=== PATIENT | female | born 1995 | race American Indian/Alaskan Native ===

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

== ENCOUNTER 2017-05-11 14:20 | Emergency (ER) | payer MEDICAID ==
[2017-05-11 15:09] VITALS: BP 130/56
[2017-05-11 15:51] LABS: Bilirubin,Urine NEG (Negative); Blood,Urine NEG (Negative); Color,Urine Yellow (Yellow); Mucus,Urine 3+ /HPF; Protein,Urine <15 mg/dL mg/dL (Negative); Urobilinogen,Urine < 2.0 mg/dL (<2.0)
[2017-05-11 15:52] LABS: HCG Qualitative,Urine Negative (Negative)
[2017-05-11] MEDS ORDERED: ZOFRAN ONE (18:23)
== END 2017-05-11 18:10 | disposition left against medical advice (07) ==
LOC: ED 14:20
DX: R11.2 Nausea with vomiting, unspecified (principal); Z53.21 Procedure and treatment not carried out due to patient leaving prior to being seen by health care provider
CPT/HCPCS: 81001; 81025; J2405

== ENCOUNTER 2018-12-13 15:25 | Emergency (ER) | payer SELFPAY ==
[2018-12-13 15:53] VITALS: BP 122/62
--- NOTE | 2018-12-13 15:54 | Event Note ---
ED Screening Note Date of service: 12/13/18 Time: 15:52 ED Screening Note: Pt complains of pelvic pain/cramping, dysuria, and positive home test x 2 weeks. +urinary frequency and polydipsia This initial assessment/diagnostic orders/clinical plan/treatment(s) is/are subject to change based on patients health status, clinical progression and re- assessment by fellow clinical providers in the ED. Further treatment and workup at subsequent clinical providers discretion. Patient/guardian urged not to elope from the ED as their condition may be serious if not clinically assessed and managed. Initial orders include: CBC BMP UA preg
[2018-12-13 17:30] LABS: Basophils % (Auto) 0.4 % (0.0-1.8); Eosinophils # (Auto) 0.1 K/mm3 (0.0-0.4); Eosinophils % (Auto) 1.5 % (0.0-4.3); Hematocrit 40.2 % (30.3-42.9); Hemoglobin 13.3 gm/dl (10.1-14.3); Lymphocytes % (Auto) 27.1 % (13.4-35.0); Mean Corpuscular HGB Conc 33 % (30-34); Mean Corpuscular Volume 88 fl (79-97); Monocytes # (Auto) 0.7 K/mm3 (0.0-0.8); Monocytes % (Auto) 9.6 % (0.0-7.3); Platelet Count 259 K/mm3 (140-440); Red Blood Count 4.54 M/mm3 (3.65-5.03); Red Cell Distribution Width 13.3 % (13.2-15.2)
[2018-12-13 18:00] LABS: BUN/Creatinine Ratio 16; Blood Urea Nitrogen 11 mg/dL (7-17); Calcium 9.2 mg/dL (8.4-10.2); Hemolysis Index 13
--- NOTE | 2018-12-13 19:29 | Emergency Department Report ---
ED Abdominal Pain HPI - General Chief Complaint: Abdominal Pain Stated Complaint: ABD CRAMPS/NAUSEA Time Seen by Provider: 12/13/18 19:19 Source: patient Mode of arrival: Ambulatory Limitations: No Limitations - History of Present Illness Initial Comments: Patient is a 23-year-old female that presents emergency room for late menstrual period, nausea and abdominal pain. Patient states she's been having having abdominal cramps for the past 4 days. Patient states they're generalized. Patient states the pain is an 8 out of 10. Patient states the pain is better with rest and worse with movement. Patient states took a home doesn't was negative. Patient states she's having breast tenderness. Patient states that her period is 2 days late. Last menstrual period was 11/15/2018. Patient denies vaginal bleeding. Patient denies vaginal discharge. Patient denies dysuria. Patient denies fever or chills. -: Sudden Location: diffuse Radiation: none Migration to: no migration Severity: severe Severity scale (0 -10): 8 Quality: cramping Consistency: constant Improves With: rest Worsens With: movement Associated Symptoms: nausea. denies: vomiting, diarrhea, fever, chills, constipation, dysuria, hematemesis, hematochezia, melena, hematuria, syncope - Related Data Previous Rx's Medication Instructions Recorded Last Taken Type Cetirizine HCl [ZyrTEC] 10 mg PO QDAY #30 capsule 05/09/16 Unknown Rx Fluticasone [Flonase] 1 spray NS QDAY #1 bottle 05/09/16 Unknown Rx Ibuprofen [Motrin 800 MG tab] 800 mg PO Q8HR #30 tablet 05/09/16 Unknown Rx Ondansetron [Zofran Odt] 4 mg PO Q6HR PRN #15 tab.rapdis 12/13/18 Unknown Rx Allergies Allergy/AdvReac Type Severity Reaction Status Date / Time No Known Allergies Allergy Unverified 05/09/16 14:34 ED Review of Systems ROS: Stated complaint: ABD CRAMPS/NAUSEA Other details as noted in HPI Constitutional: denies: chills, fever Eyes: denies: eye pain, eye discharge, vision change ENT: denies: ear pain, throat pain Respiratory: denies: cough, shortness of breath, wheezing Cardiovascular: denies: chest pain, palpitations Endocrine: no symptoms reported Gastrointestinal: abdominal pain, nausea. denies: vomiting, diarrhea Genitourinary: denies: urgency, dysuria, discharge Musculoskeletal: denies: back pain, joint swelling, arthralgia Skin: denies: rash, lesions Neurological: denies: headache, weakness, paresthesias Psychiatric: denies: anxiety, depression Hematological/Lymphatic: denies: easy bleeding, easy bruising ED Past Medical Hx - Past Medical History Previous Medical History?: No Hx Hypertension: No Hx CVA: No Hx Heart Attack/AMI: No Hx Congestive Heart Failure: No Hx Diabetes: No Hx Deep Vein Thrombosis: No Hx Pulmonary Embolism: No Hx GERD: No Hx Liver Disease: No Hx Renal Disease: No Hx of Cancer: No Hx Sickle Cell Disease: No Hx Arthritis: No Hx Headaches / Migraines: No Hx Seizures: No Hx Kidney Stones: No Hx Psychiatric Treatment: No Hx Asthma: No Hx COPD: No Hx Tuberculosis: No Hx Dementia: No Hx HIV: No - Surgical History Past Surgical History?: No Hx Coronary Stent: No Hx Open Heart Surgery: No Hx Pacemaker: No Hx Internal Defibrillator: No Hx Cholecystectomy: No Hx Appendectomy: No Hx Breast Surgery: No - Family History Family history: no significant - Social History Smoking Status: Never Smoker Substance Use Type: None - Medications Home Medications: Home Medications Medication Instructions Recorded Confirmed Last Taken Type Cetirizine HCl [ZyrTEC] 10 mg PO QDAY #30 capsule 05/09/16 Unknown Rx Fluticasone [Flonase] 1 spray NS QDAY #1 bottle 05/09/16 Unknown Rx Ibuprofen [Motrin 800 MG tab] 800 mg PO Q8HR #30 tablet 05/09/16 Unknown Rx Ondansetron [Zofran Odt] 4 mg PO Q6HR PRN #15 tab.rapdis 12/13/18 Unknown Rx ED Physical Exam - General Limitations: No Limitations General appearance: alert, in no apparent distress - Head Head exam: Present: atraumatic, normocephalic - Eye Eye exam: Present: normal appearance - ENT ENT exam: Present: mucous membranes moist - Neck Neck exam: Present: normal inspection - Respiratory Respiratory exam: Present: normal lung sounds bilaterally. Absent: respiratory distress - Cardiovascular Cardiovascular Exam: Present: regular rate, normal rhythm. Absent: systolic murmur, diastolic murmur, rubs, gallop - GI/Abdominal GI/Abdominal exam: Present: soft, normal bowel sounds. Absent: distended, tenderness, guarding - Rectal Rectal exam: Present: deferred - Extremities Exam Extremities exam: Present: normal inspection - Back Exam Back exam: Present: normal inspection - Neurological Exam Neurological exam: Present: alert, oriented X3 - Psychiatric Psychiatric exam: Present: normal affect, normal mood - Skin Skin exam: Present: warm, dry, intact, normal color. Absent: rash ED Course Vital Signs 12/13/18 15:51 Temperature 98.1 F Pulse Rate 62 Respiratory 16 Rate Blood Pressure 122/62 O2 Sat by Pulse 99 Oximetry - Reevaluation(s) Reevaluation #1: I discussed all results with patient. I discussed plan of care with patient. Patient agrees with plan of care. Patient is stable for discharge. Patient will be discharged home. Patient given discharge instructions. Patient voiced understanding of discharge instructions. 12/13/18 19:59 ED Medical Decision Making - Lab Data Result diagrams: 12/13/18 17:06 12/13/18 17:06 - Medical Decision Making Patient is a 23-year-old female that presents emergency room for abdominal pain, cramps, nausea. Patient also complained of her menstrual cycle being late. Patient's labs unremarkable. Patient's clinical findings consistent with gastroenteritis and irregular menses. Patient given discharge instructions. 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 Patient stable for discharge. Patient discharged home with instructions. - Differential Diagnosis . Irregular menses. Nausea. Gastroneuritis. Abdominal pain. Critical care attestation.: If time is entered above; I have spent that time in minutes in the direct care of this critically ill patient, excluding procedure time. ED Disposition Clinical Impression: Irregular menses, Nausea, Gastroenteritis Abdominal pain Qualifiers: Abdominal location: generalized Qualified Code(s): R10.84 - Generalized abdominal pain Disposition: - TO HOME OR SELFCARE Is pt being admited?: No Does the pt Need Aspirin: No Condition: Stable Instructions: Abdominal Pain (ED), Gastroenteritis (ED), Acute Nausea and Vomiting (ED) Additional Instructions: Patient to follow-up with primary care in 2-3 days. Patient to follow-up with og/nutrition specialist in 2-3 days. Patient to return to ER if condition worsens. Patient to rest. Patient to increase water. Patient to take meds as directed. Patient's take Tylenol or ibuprofen when necessary for pain. Prescriptions: Ondansetron [Zofran Odt] 4 mg PO Q6HR PRN #15 tab.rapdis PRN Reason: Nausea Referrals: JEANNE ELAM MD [Staff Physician] - 2-3 Days Time of Disposition: 20:02
[2018-12-13 19:47] LABS: Bilirubin,Urine NEG (Negative); Blood,Urine NEG (Negative); Color,Urine Yellow (Yellow); Mucus,Urine FEW /HPF; Protein,Urine <15 mg/dL mg/dL (Negative); Urobilinogen,Urine < 2.0 mg/dL (<2.0); WBC,Urine < 1.0 /HPF (0.0-6.0)
[2018-12-13 19:57] LABS: HCG Qualitative,Urine Negative (Negative)
== END 2018-12-13 20:05 | disposition home or self-care (01) ==
LOC: ED 15:25
DX: K52.9 Noninfective gastroenteritis and colitis, unspecified (principal); N92.6 Irregular menstruation, unspecified
CPT/HCPCS: 36415; 80048; 81001; 81025; 85025

== ENCOUNTER 2019-06-23 03:50 | Inpatient (IN) | payer MEDICAID ==
[2019-06-23] MEDS ORDERED: ACETAMINOPHEN 325 MG TAB PO ONE (04:18)
--- NOTE | 2019-06-23 04:18 | Emergency Department Report ---
ED General Adult HPI - General Chief complaint: Vaginal Bleeding Stated complaint: VAGINAL BLEEDING Time Seen by Provider: 06/23/19 04:11 Source: patient, EMS ( EMS documentation not available at time of chart dictation ), RN notes reviewed Mode of arrival: Stretcher Limitations: No Limitations - History of Present Illness Initial comments: Chaperoned by nurse Jessica Gonzalez Patient denies fever, cough, coronavirus exposure Patient is a 23-year-old female, not known to this provider previously, with no chronic medical conditions, G1, P0, approximately 5 months gestation, typically follows with [facility] PIPE ORGAN TECHNICIAN, who presents to the ER with a complaint of vaginal bleeding and fluid expulsion from her vagina. Patient states that she was in her usual state of health, and was masturbating with her finger last night, shortly thereafter, started to have fluid expulsion, not sure what color it was, with some vaginal bleeding. Patient also endorses that there was some cramping. The patient makes no complaint of headache, neck pain, chest pain, shortness of breath, denies irritative and obstructive urinary symptoms. She is nauseous but has not vomited that she can recall. She indicates she is not having pain at this time. Her symptoms have basically resolved, and do not have exacerbating or relieving factors that she is aware of, with the exception of vaginal bleeding which has been going on for a few hours. -: Sudden Location: abdomen Severity scale (0 -10): 0 Quality: other (Cramp) Consistency: now resolved Improves with: none Worsens with: none - Related Data Previous Rx's Medication Instructions Recorded Last Taken Type Cetirizine HCl [ZyrTEC] 10 mg PO QDAY #30 capsule 05/09/16 Unknown Rx Fluticasone [Flonase] 1 spray NS QDAY #1 bottle 05/09/16 Unknown Rx Ibuprofen [Motrin 800 MG tab] 800 mg PO Q8HR #30 tablet 05/09/16 Unknown Rx Ondansetron [Zofran Odt] 4 mg PO Q6HR PRN #15 tab.rapdis 12/13/18 Unknown Rx Allergies Allergy/AdvReac Type Severity Reaction Status Date / Time No Known Allergies Allergy Unverified 05/09/16 14:34 ED Review of Systems ROS: Stated complaint: VAGINAL BLEEDING Other details as noted in HPI Constitutional: denies: fever Eyes: denies: eye discharge ENT: denies: congestion Respiratory: denies: wheezing Cardiovascular: denies: chest pain Gastrointestinal: abdominal pain, nausea Genitourinary: as per HPI Musculoskeletal: as per HPI. denies: back pain Skin: as per HPI Neurological: as per HPI Psychiatric: as per HPI, anxiety Hematological/Lymphatic: denies: easy bleeding ED Past Medical Hx - Past Medical History Previous Medical History?: No Hx Hypertension: No Hx CVA: No Hx Heart Attack/AMI: No Hx Congestive Heart Failure: No Hx Diabetes: No Hx Deep Vein Thrombosis: No Hx Pulmonary Embolism: No Hx GERD: No Hx Liver Disease: No Hx Renal Disease: No Hx Sickle Cell Disease: No Hx Arthritis: No Hx Headaches / Migraines: No Hx Seizures: No Hx Kidney Stones: No Hx Psychiatric Treatment: No Hx Asthma: No Hx COPD: No Hx Tuberculosis: No Hx Dementia: No Hx HIV: No - Surgical History Past Surgical History?: No Hx Coronary Stent: No Hx Open Heart Surgery: No Hx Pacemaker: No Hx Internal Defibrillator: No Hx Cholecystectomy: No Hx Appendectomy: No Hx Breast Surgery: No - Social History Smoking Status: Current Some Day Smoker - Medications Home Medications: Home Medications Medication Instructions Recorded Confirmed Last Taken Type Cetirizine HCl [ZyrTEC] 10 mg PO QDAY #30 capsule 05/09/16 Unknown Rx Fluticasone [Flonase] 1 spray NS QDAY #1 bottle 05/09/16 Unknown Rx Ibuprofen [Motrin 800 MG tab] 800 mg PO Q8HR #30 tablet 05/09/16 Unknown Rx Ondansetron [Zofran Odt] 4 mg PO Q6HR PRN #15 tab.rapdis 12/13/18 Unknown Rx ED Physical Exam - General Limitations: No Limitations General appearance: alert, anxious, obese - Head Head exam: Present: atraumatic, normocephalic - Eye Eye exam: Present: normal appearance, EOMI, nystagmus - ENT ENT exam: Present: normal exam, normal orophraynx, mucous membranes moist, normal external ear exam - Neck Neck exam: Present: normal inspection, full ROM. Absent: tenderness, meningis mus - Respiratory Respiratory exam: Present: normal lung sounds bilaterally. Absent: respiratory distress - Cardiovascular Cardiovascular Exam: Present: regular rate, normal rhythm, normal heart sounds. Absent: bradycardia, tachycardia, irregular rhythm, systolic murmur, diastolic murmur, rubs, gallop - GI/Abdominal GI/Abdominal exam: Present: soft, normal bowel sounds. Absent: distended, tenderness, guarding, rebound, rigid, pulsatile mass - External exam: Present: normal external exam Speculum exam: Present: vaginal bleeding - Extremities Exam Extremities exam: Present: normal inspection, full ROM, other (2+ pulses noted in the bilateral upper and lower extremities. There is no palpable cord. negative Homans sign. Muscular compartments are soft. The pelvis is stable.). Absent: pedal edema, joint swelling, calf tenderness - Back Exam Back exam: Present: normal inspection, full ROM. Absent: tenderness, CVA tenderness (R), CVA tenderness (L), paraspinal tenderness, vertebral tenderness - Neurological Exam Neurological exam: Present: alert, oriented X3, normal gait, other (No facial droop. Tongue midline. Extraocular movements intact bilaterally. Facial sensation intact to light touch in V1, V2, V3 distribution bilaterally. 5 and a 5 strength in 4 extremities. Sensation intact to light touch in 4 extremities.). Absent: motor sensory deficit - Psychiatric Psychiatric exam: Present: anxious - Skin Skin exam: Present: warm, dry, intact, normal color. Absent: rash ED Course Vital Signs 06/23/19 04:02 Temperature 97.7 F Pulse Rate 65 Respiratory 16 Rate Blood Pressure 121/67 O2 Sat by Pulse 99 Oximetry - Reevaluation(s) Reevaluation #1: 06/23/19 04:24 Differential diagnosis, including but not limited to: premature rupture of membranes, placenta previa, urinary tract infection, miscarriage Assessment and plan: 23-year-old female who is 5 months , reports u ncomplicated , who was masturbating with her finger, then sore fluid, of uncertain color, and developed vaginal bleeding. Patient is afebrile, with reassuring vital signs, retracting her airway, mildly anxious, with a soft benign abdomen, and no rebound, guarding or peritoneal signs. Declines pain medication at this time. Check ultrasound, urinalysis, basic laboratory studies, reassess, and after initial diagnostics have resulted, discuss with her PIPE ORGAN TECHNICIAN. Reevaluation #2: 06/23/19 05:10 06/23/19 06:00 Ultrasound shows intrauterine , no amniotic fluid, widening and opening of internal and external office, suggestive of premature rupture of membranes and inevitable . Patient will be admitted to the PIPE ORGAN TECHNICIAN service. I have updated the patient on her findings. Shaila Rai to admit for pre term pre mature rupture of membranes Reevaluation #3: 06/23/19 05:59 ED Medical Decision Making - Lab Data Result diagrams: 06/23/19 04:09 06/23/19 04:30 Vital Signs 06/23/19 04:02 Temperature 97.7 F Pulse Rate 65 Respiratory 16 Rate Blood Pressure 121/67 O2 Sat by Pulse 99 Oximetry Vital Signs 06/23/19 04:02 Temperature 97.7 F Pulse Rate 65 Respiratory 16 Rate Blood Pressure 121/67 O2 Sat by Pulse 99 Oximetry Lab Results 06/23/19 06/23/19 06/23/19 Range/Units 04:09 04:09 04:30 WBC 11.2 H (4.5-11.0) K/mm3 RBC 3.94 (3.65-5.03) M/mm3 Hgb 11.6 (10.1-14.3) gm/dl Hct 34.3 (30.3-42.9) % MCV 87 (79-97) fl MCH 30 (28-32) pg MCHC 34 (30-34) % RDW 12.8 L (13.2-15.2) % Plt Count 256 (140-440) K/mm3 Lymph % (Auto) 12.9 L (13.4-35.0) % [place] % (Auto) 7.2 (0.0-7.3) % Eos % (Auto) 1.3 (0.0-4.3) % Baso % (Auto) 0.3 (0.0-1.8) % Lymph # 1.5 (1.2-5.4) K/mm3 [place] # 0.8 (0.0-0.8) K/mm3 Eos # 0.1 (0.0-0.4) K/mm3 Baso # 0.0 (0.0-0.1) K/mm3 Seg Neutrophils % 78.3 H (40.0-70.0) % Seg Neutrophils # 8.8 H (1.8-7.7) K/mm3 Sodium 136 L (137-145) mmol/L Potassium 4.2 (3.6-5.0) mmol/L Chloride 104.6 (98-107) mmol/L Carbon Dioxide 21 L (22-30) mmol/L Anion Gap 15 mmol/L BUN 7 (7-17) mg/dL Creatinine 0.5 L (0.7-1.2) mg/dL Estimated GFR > 60 ml/min BUN/Creatinine Ratio 14 % Glucose 86 (65-100) mg/dL Calcium 9.2 (8.4-10.2) mg/dL Magnesium 1.70 (1.7-2.3) mg/dL Total Bilirubin 0.20 (0.1-1.2) mg/dL AST 15 (5-40) units/L ALT 34 (7-56) units/L Alkaline Phosphatase 50 (35-129) units/L Total Creatine Kinase 85 (30-135) units/L Total Protein 6.3 (6.3-8.2) g/dL Albumin 3.7 L (3.9-5) g/dL Albumin/Globulin Ratio 1.4 % HCG, Quant 8461 H (0-4) mIU/mL Blood Type 06/23/19 Range/Units 04:33 WBC (4.5-11.0) K/mm3 RBC (3.65-5.03) M/mm3 Hgb (10.1-14.3) gm/dl Hct (30.3-42.9) % MCV (79-97) fl MCH (28-32) pg MCHC (30-34) % RDW (13.2-15.2) % Plt Count (140-440) K/mm3 Lymph % (Auto) (13.4-35.0) % [place] % (Auto) (0.0-7.3) % Eos % (Auto) (0.0-4.3) % Baso % (Auto) (0.0-1.8) % Lymph # (1.2-5.4) K/mm3 [place] # (0.0-0.8) K/mm3 Eos # (0.0-0.4) K/mm3 Baso # (0.0-0.1) K/mm3 Seg Neutrophils % (40.0-70.0) % Seg Neutrophils # (1.8-7.7) K/mm3 Sodium (137-145) mmol/L Potassium (3.6-5.0) mmol/L Chloride (98-107) mmol/L Carbon Dioxide (22-30) mmol/L Anion Gap mmol/L BUN (7-17) mg/dL Creatinine (0.7-1.2) mg/dL Estimated GFR ml/min BUN/Creatinine Ratio % Glucose (65-100) mg/dL Calcium (8.4-10.2) mg/dL Magnesium (1.7-2.3) mg/dL Total Bilirubin (0.1-1.2) mg/dL AST (5-40) units/L ALT (7-56) units/L Alkaline Phosphatase (35-129) units/L Total Creatine Kinase (30-135) units/L Total Protein (6.3-8.2) g/dL Albumin (3.9-5) g/dL Albumin/Globulin Ratio % HCG, Quant (0-4) mIU/mL Blood Type A POSITIVE - Radiology Data Radiology results: pending, report reviewed, image reviewed Print Report Referring Physician: SPARKLE MULLER Patient Name: MAICOL COPE Date of : 1995 Sex: Female Report Date: 2019-06-23 Report Status: Finalized Findings [facility] [address] [place] [address] Ultrasound Report Signed Patient: MAICOL COPE MR#: [id number] : 1995 Acct:[id number] Age/Sex: 23 / F ADM Date: 06/23/19 Loc: ED Attending Dr: Ordering Physician: SPARKLE MULLER MD Date of Service: 06/23/19 Procedure(s): US OB >= 14 weeks Fetus Accession Number(s): [id number] cc: SPARKLE MULLER MD Limited obstetrical ultrasound INDICATION: Leaking fluid COMPARISON: None TECHNIQUE: Transabdominal Single intrauterine is seen in a breech position. Estimated gestational age is 20 weeks 0 days which conforms with clinical dating. Cardiac activity was documented with heart rate of 178 bpm. Placenta is posterior inferior and fundal and free of the internal cervical os No appreciable amniotic fluid is seen. The internal cervical os is open and the cervical canal is diffusely widened to 8 mm. I do not see obvious herniation of parts through the internal cervical os at this time. IMPRESSION: Open cervix with no appreciable amniotic fluid. Living fetus noted at this time. S igner Name: Franki Kirkland MD Signed: 06/23/2019 5:45 AM Workstation Name: [id number] Transcribed By: GIANFRANCO Dictated By: Franki Kirkland MD Electronically Authenticated By: Franki Kirkland MD Signed Date/Time: 06/23/1945 DD/ 0 Critical care attestation.: If time is entered above; I have spent that time in minutes in the direct care of this critically ill patient, excluding procedure time. ED Disposition Clinical Impression: Miscarriage premature rupture of membranes Qualifiers: PROM onset of labor timing: unspecified duration between rupture of membranes and onset of labor Qualified Code(s): O42.919 - premature rupture of membranes, unspecified as to length of time between rupture and onset of labor, unspecified trimester Disposition: -09 OP ADMIT IP TO THIS HOSP Is pt being admited?: Yes Condition: Serious Referrals: PRIMARY CAREMD [Primary Care Provider] - 3-5 Days
[2019-06-23 04:38] LABS: Basophils % (Auto) 0.3 % (0.0-1.8); Eosinophils # (Auto) 0.1 K/mm3 (0.0-0.4); Eosinophils % (Auto) 1.3 % (0.0-4.3); Hematocrit 34.3 % (30.3-42.9); Hemoglobin 11.6 gm/dl (10.1-14.3); Lymphocytes # (Auto) 1.5 K/mm3 (1.2-5.4); Lymphocytes % (Auto) 12.9 % (13.4-35.0); Mean Corpuscular HGB Conc 34 % (30-34); Mean Corpuscular Volume 87 fl (79-97); Monocytes # (Auto) 0.8 K/mm3 (0.0-0.8); Monocytes % (Auto) 7.2 % (0.0-7.3); Platelet Count 256 K/mm3 (140-440); Red Blood Count 3.94 M/mm3 (3.65-5.03); Red Cell Distribution Width 12.8 % (13.2-15.2)
[2019-06-23 05:03] LABS: Alanine Aminotransferase 34 units/L (7-56); Albumin 3.7 g/dL (3.9-5); BUN/Creatinine Ratio 14; Blood Urea Nitrogen 7 mg/dL (7-17); Calcium 9.2 mg/dL (8.4-10.2); Hemolysis Index 5
--- NOTE | 2019-06-23 05:49 | Ultrasound Report ---
Limited obstetrical ultrasound INDICATION: Leaking fluid COMPARISON: None TECHNIQUE: Transabdominal Single intrauterine is seen in a breech position. Estimated gestational age is 20 weeks 0 d ays which conforms with clinical dating. Cardiac activity was documented with heart rate of 178 bpm. Placenta is posterior inferior and fundal and free of the internal cervical os No appreciable amniotic fluid is seen. The internal cervical os is open and the cervical canal is dif fusely widened to 8 mm. I do not see obvious herniation of parts through the internal cervical os at this time. IMPRESSION: Open cervix with no appreciable amniotic fluid. Living fetus noted at this time. Signer Name: Franki Kirkland MD Signed: 06/23/2019 5:45 AM Workstation Name: [id number]
[2019-06-23] MEDS: AMPICILLIN/NS 2 GM/100 ML 2 GM/100 ML BAG IV SCH ×3 (10:06→23:53)
[2019-06-23] MEDS: LACTATED RINGERS 1,000 ML IV SCH ×2 (10:06→20:04)
--- NOTE | 2019-06-23 13:22 | History and Physical Report ---
History of Present Illness Date of examination: 06/23/19 Date of admission: 06/23/19 06:11 Chief complaint: vaginal bleeding, leaking History of present illness: This is a 23 yo at 20 weeks here for vaginal bleeding and leaking and evaluated in Er and noted to be oligo. SHe reports no pain but bleeding. She reports no medical problems Past History Past Medical History: no pertinent history Past Surgical History: no surgical history Family/Genetic History: none Social history: no significant social history, single. denies: smoking, alcohol abuse, prescription drug abuse - Obstetrical History : 1 Para: 0 Hx # Term Pregnancies: 0 Number of Pregnancies: 0 Spontaneous Abortions: 0 Induced : 0 Number of Living Children: 0 Medications and Allergies Allergies Allergy/AdvReac Type Severity Reaction Status Date / Time No Known Allergies Allergy Unverified 05/09/16 14:34 Home Medications Medication Instructions Recorded Confirmed Last Taken Type No Known Home Medications [No 06/23/19 06/23/19 Unknown History Reported Home Medications] Active Meds: Active Medications Lactated Ringer's (Lactated Ringers) 1,000 mls @ 125 mls/hr IV DIRECT GUILHERME Last Admin: 06/23/19 10:06 Dose: 125 mls/hr Documented by: Ampicillin Sodium (Ampicillin/Ns 2 Gm/100 Ml) 2 gm in 100 mls @ 100 mls/hr IV Q6HR GUILHERME; Protocol Stop: 06/25/19 00:59 Last Admin: 06/23/19 10:06 Dose: 100 mls/hr Documented by: Review of Systems All systems: negative Genitourinary: vaginal bleeding, leakage of fluid - Vital Signs Vital signs: Vital Signs Temp Pulse Resp BP Pulse Ox 97.7 F 65 16 121/67 99 06/23/19 04:02 06/23/19 04:02 06/23/19 04:02 06/23/19 04:02 06/23/19 04:02 Temp Pulse Resp BP Pulse Ox 97.5 F L 73 16 115/57 99 06/23/19 08:52 06/23/19 13:11 06/23/19 08:52 06/23/19 08:52 06/23/19 13:11 - Physical Exam Breasts: Positive: normal Cardiovascular: Regular rate, Normal S1 Lungs: Positive: Clear to auscultation, Normal air movement Abdomen: Positive: normal appearance, soft, normal bowel sounds. Negative: distention, tenderness, guarding Genitourinary (Female): Positive: normal external genitalia, normal perenium Vagina: Positive: normal moisture Uterus: Positive: normal size, normal contour Anus/Rectum: Positive: normal perianal skin Extremities: Positive: normal Deep Tendon Reflex Grade: Normal +2 Results Result Diagrams: 06/23/19 04:09 06/23/19 04:30 Abnormal lab results 06/23/19 06/23/19 06/23/19 Range/Units 04:09 04:09 04:30 WBC 11.2 H (4.5-11.0) K/mm3 RDW 12.8 L (13.2-15.2) % Lymph % (Auto) 12.9 L (13.4-35.0) % Seg Neutrophils % 78.3 H (40.0-70.0) % Seg Neutrophils # 8.8 H (1.8-7.7) K/mm3 Sodium 136 L (137-145) mmol/L Carbon Dioxide 21 L (22-30) mmol/L Creatinine 0.5 L (0.7-1.2) mg/dL Albumin 3.7 L (3.9-5) g/dL HCG, Quant 8461 H (0-4) mIU/mL All other labs normal. Ultrasound: pending, report reviewed Assessment and Plan A/P IUP 20 weeks vaginal bleeding oligo cervical incompotence cord prolapse discussed with patient the inevitability of this M discussed d/c home f/u at 23 weeks with temp taking TID await as patient discussed with partner
--- NOTE | 2019-06-23 14:14 | Consultation ---
History of Present Illness Consult date: 06/23/19 Requesting physician: ELIZABETH RAI History of present illness: APA/MFM History of present illness: 23 y/o KRISTI 11/04/19 EGA at 20 weeks Presented with vag bleeding and leaking US - No Fluid Dr. Amisha Rai spec exam - Cervix dilated with Cord Prolapse ( In vag ) Denies fever chills abd pain Small amount of bleeding Afeb VSS 115/57 Abd NT no rebound no gaurding Ext NT Vag - Spec per Dr. Amisha Rai -Cervix dilated with Cord Prolapse ( In vag ) No med No STD No C/D/d Past History Past Medical History: no pertinent history Past Surgical History: no surgical history Family/Genetic History: none Social history: no significant social history, single. denies: smoking, alcohol abuse, prescription drug abuse Past History Past Medical History: no pertinent history Past Surgical History: no surgical history Family/Genetic History: none - Obstetrical History : 1 Medications and Allergies Allergies Allergy/AdvReac Type Severity Reaction Status Date / Time No Known Allergies Allergy Unverified 05/09/16 14:34 Home Medications Medication Instructions Recorded Confirmed Last Taken Type No Known Home Medications [No 06/23/19 06/23/19 Unknown History Reported Home Medications] Active Meds: Active Medications Lactated Ringer's (Lactated Ringers) 1,000 mls @ 125 mls/hr IV DIRECT GUILHERME Last Admin: 06/23/19 10:06 Dose: 125 mls/hr Documented by: Ampicillin Sodium (Ampicillin/Ns 2 Gm/100 Ml) 2 gm in 100 mls @ 100 mls/hr IV Q6HR GUILHERME; Protocol Stop: 06/25/19 00:59 Last Admin: 06/23/19 10:06 Dose: 100 mls/hr Documented by: - Vital Signs Vital signs: Vital Signs Temp Pulse Resp BP Pulse Ox 97.7 F 65 16 121/67 99 06/23/19 04:02 06/23/19 04:02 06/23/19 04:02 06/23/19 04:02 06/23/19 04:02 Temp Pulse Resp BP Pulse Ox 97.5 F L 60 16 115/57 99 06/23/19 08:52 06/23/19 14:06 06/23/19 08:52 06/23/19 08:52 06/23/19 14:06 Results Result Diagrams: 06/23/19 04:09 06/23/19 04:30 Abnormal lab results 06/23/19 06/23/19 06/23/19 Range/Units 04:09 04:09 04:30 WBC 11.2 H (4.5-11.0) K/mm3 RDW 12.8 L (13.2-15.2) % Lymph % (Auto) 12.9 L (13.4-35.0) % Seg Neutrophils % 78.3 H (40.0-70.0) % Seg Neutrophils # 8.8 H (1.8-7.7) K/mm3 Sodium 136 L (137-145) mmol/L Carbon Dioxide 21 L (22-30) mmol/L Creatinine 0.5 L (0.7-1.2) mg/dL Albumin 3.7 L (3.9-5) g/dL HCG, Quant 8461 H (0-4) mIU/mL All other labs normal. Assessment and Plan Assessment 1. Colin IUP at 20 weeks 2. PPROM 3. Vag Bleeding 4. Cord Prolapse 5. Inc Cervix Suspected REC 1. Explained poor prognosis - appears delivery inevitable 2. Offered termination/Delivery and declined at present - explained increase risk of maternal morbidity if chorio develops including maternal sepsis infertility morbidity/mortality 3. Explained would allow discharge home until viability at 23 weeks for admission steroids Mg but prognosis remains poor and If preg prolonged baby could still suffer neurological and physical handicaps , Pot[place], Hypoplastic Lungs 4. If discharged would counseled on temps TID and to call for any s/s of chorio contrax increase vag bleeding 5. Cerclage candidate with future pregnancies 6. Discussed with Dr. Amisha Rai
--- NOTE | 2019-06-23 18:57 | Event Note ---
Date: 06/23/19 Patient examined earlier with MFM. it was noted that she had cord in vagina. will order US for viability.
--- NOTE | 2019-06-23 19:58 | Ultrasound Report ---
US OB LIMITED INDICATION / CLINICAL INFORMATION: viability. History of oligohydramnios and cervical incompetence. COMPARISON: Earlier today at 5:13 AM. FINDINGS: There is a single intrauterine with a heart rate of 157 bpm. presentation is cephalic . Amniotic fluid volume is markedly decreased with an KATY of 0. The cervix measures 5.7 cm in length with mild fluid throughout the cervical canal. The findings are similar to the prior study earlier today. Signer Name: Jacinto Barnhart MD Signed: 06/23/2019 7:54 PM Workstation Name: [id number]
[2019-06-23] MEDS ORDERED: DEXMEDETOMIDINE 200 MCG/2 ML VIAL IV ONE (20:06)
[2019-06-24] MEDS: LACTATED RINGERS 1,000 ML IV SCH (05:50)
[2019-06-24] MEDS: AMPICILLIN/NS 2 GM/100 ML 2 GM/100 ML BAG IV SCH ×3 (05:50→21:23)
--- NOTE | 2019-06-24 08:34 | Progress Note ---
Assessment and Plan - Patient Problems (1) premature rupture of membranes Current Visit: Yes Status: Acute Qualifiers: PROM onset of labor timing: unspecified duration between rupture of membranes and onset of labor Qualified Code(s): O42.919 - premature rupture of membranes, unspecified as to length of time between rupture and onset of labor, unspecified trimester Plan to address problem: Expectant management Subjective - Subjective Date of service: 06/24/19 Interval history: 23-year-old G1, P0 at 20 weeks who presents with premature rupture membranes. Exam was performed that demonstrated that the umbilical cord was in the vagina. There is currently still evidence of cardiac activity. The patient is aware of the poor prognosis. She is currently complaining of lower abdominal pressure and nausea. Patient reports: loss of fluid Objective - Vital Signs Vital Signs: Vital Signs - 12hr 06/23/19 06/23/19 06/23/19 20:37 20:38 20:43 Temperature Pulse Rate 64 69 74 Respiratory Rate Blood Pressure 106/53 Blood Pressure [Left] O2 Sat by Pulse 100 99 Oximetry 06/23/19 06/23/19 06/23/19 20:48 20:53 20:58 Temperature Pulse Rate 68 71 63 Respiratory Rate Blood Pressure Blood Pressure [Left] O2 Sat by Pulse 99 100 99 Oximetry 06/23/19 06/23/19 06/23/19 21:03 21:08 21:13 Temperature Pulse Rate 64 63 63 Respiratory Rate Blood Pressure Blood Pressure [Left] O2 Sat by Pulse 99 100 98 Oximetry 06/23/19 06/23/19 06/23/19 21:16 21:17 21:18 Temperature Pulse Rate 68 64 67 Respiratory Rate Blood Pressure 104/56 Blood Pressure [Left] O2 Sat by Pulse 83 L 99 Oximetry 06/23/19 06/23/19 06/23/19 21:23 21:28 21:33 Temperature Pulse Rate 70 71 69 Respiratory Rate Blood Pressure Blood Pressure [Left] O2 Sat by Pulse 100 99 98 Oximetry 06/23/19 06/23/19 06/23/19 21:37 21:38 21:43 Temperature Pulse Rate 60 57 L 60 Respiratory Rate Blood Pressure 110/59 Blood Pressure [Left] O2 Sat by Pulse 98 98 Oximetry 06/23/19 06/23/19 06/23/19 21:48 21:53 21:58 Temperature Pulse Rate 60 62 66 Respiratory Rate Blood Pressure Blood Pressure [Left] O2 Sat by Pulse 98 98 97 Oximetry 06/23/19 06/23/19 06/23/19 22:03 22:07 22:08 Temperature Pulse Rate 60 72 65 Respiratory Rate Blood Pressure 105/56 Blood Pressure [Left] O2 Sat by Pulse 98 99 Oximetry 06/23/19 06/23/19 06/23/19 22:13 22:18 22:23 Temperature Pulse Rate 63 66 70 Respiratory Rate Blood Pressure Blood Pressure [Left] O2 Sat by Pulse 99 98 98 Oximetry 06/23/19 06/23/19 06/23/19 22:28 22:30 22:33 Temperature 99.2 F Pulse Rate 69 86 70 Respiratory 18 Rate Blood Pressure Blood Pressure 102/59 [Left] O2 Sat by Pulse 98 99 98 Oximetry 06/23/19 06/23/19 06/23/19 22:34 22:37 22:38 Temperature Pulse Rate 67 66 74 Respiratory Rate Blood Pressure 102/59 104/58 Blood Pressure [Left] O2 Sat by Pulse 100 Oximetry 06/23/19 06/23/19 06/23/19 22:43 22:48 22:53 Temperature Pulse Rate 81 73 64 Respiratory Rate Blood Pressure Blood Pressure [Left] O2 Sat by Pulse 99 99 100 Oximetry 06/23/19 06/23/19 06/23/19 22:58 23:03 23:07 Temperature Pulse Rate 62 77 71 Respiratory Rate Blood Pressure 115/66 Blood Pressure [Left] O2 Sat by Pulse 100 100 Oximetry 06/23/19 06/23/19 06/23/19 23:08 23:13 23:18 Temperature Pulse Rate 65 69 70 Respiratory Rate Blood Pressure Blood Pressure [Left] O2 Sat by Pulse 100 100 99 Oximetry 06/23/19 06/23/19 06/23/19 23:23 23:28 23:33 Temperature Pulse Rate 63 71 74 Respiratory Rate Blood Pressure Blood Pressure [Left] O2 Sat by Pulse 100 99 99 Oximetry 06/23/19 06/23/19 06/23/19 23:37 23:38 23:43 Temperature Pulse Rate 71 67 74 Respiratory Rate Blood Pressure 106/57 Blood Pressure [Left] O2 Sat by Pulse 100 99 Oximetry 06/23/19 06/23/19 06/23/19 23:48 23:53 23:54 Temperature 99.2 F Pulse Rate 60 67 77 Respiratory 18 Rate Blood Pressure Blood Pressure 106/57 [Left] O2 Sat by Pulse 97 97 99 Oximetry 06/23/19 06/24/19 06/24/19 23:58 00:03 00:07 Temperature Pulse Rate 60 63 87 Respiratory Rate Blood Pressure 107/55 Blood Pressure [Left] O2 Sat by Pulse 98 99 Oximetry 06/24/19 06/24/19 06/24/19 00:08 00:13 00:18 Temperature Pulse Rate 65 61 67 Respiratory Rate Blood Pressure Blood Pressure [Left] O2 Sat by Pulse 100 99 97 Oximetry 06/24/19 06/24/19 06/24/19 00:23 00:28 00:33 Temperature Pulse Rate 63 64 65 Respiratory Rate Blood Pressure Blood Pressure [Left] O2 Sat by Pulse 98 98 96 Oximetry 06/24/19 06/24/19 06/24/19 00:37 00:38 00:43 Temperature Pulse Rate 75 63 63 Respiratory Rate Blood Pressure 108/55 Blood Pressure [Left] O2 Sat by Pulse 98 99 Oximetry 06/24/19 06/24/19 06/24/19 00:48 00:53 00:58 Temperature Pulse Rate 68 63 66 Respiratory Rate Blood Pressure Blood Pressure [Left] O2 Sat by Pulse 98 99 98 Oximetry 06/24/19 06/24/19 06/24/19 01:03 01:08 01:13 Temperature Pulse Rate 68 68 63 Respiratory Rate Blood Pressure 115/59 Blood Pressure [Left] O2 Sat by Pulse 98 98 98 Oximetry 06/24/19 06/24/19 06/24/19 01:18 01:23 01:28 Temperature Pulse Rate 64 76 64 Respiratory Rate Blood Pressure Blood Pressure [Left] O2 Sat by Pulse 97 99 99 Oximetry 06/24/19 06/24/19 06/24/19 01:33 01:37 01:38 Temperature Pulse Rate 72 62 63 Respiratory Rate Blood Pressure 107/56 Blood Pressure [Left] O2 Sat by Pulse 99 98 Oximetry 06/24/19 06/24/19 06/24/19 01:43 01:48 01:53 Temperature Pulse Rate 58 L 58 L 61 Respiratory Rate Blood Pressure Blood Pressure [Left] O2 Sat by Pulse 98 98 97 Oximetry 06/24/19 06/24/19 06/24/19 01:58 02:03 02:08 Temperature Pulse Rate 65 64 52 L Respiratory Rate Blood Pressure Blood Pressure [Left] O2 Sat by Pulse 97 97 97 Oximetry 06/24/19 06/24/19 06/24/19 02:09 02:13 02:18 Temperature Pulse Rate 90 70 63 Respiratory Rate Blood Pressure 109/57 Blood Pressure [Left] O2 Sat by Pulse 100 99 Oximetry 06/24/19 06/24/19 06/24/19 02:20 02:23 02:25 Temperature 99.8 F H Pulse Rate 68 74 70 Respiratory 18 Rate Blood Pressure 112/57 Blood Pressure 102/57 [Left] O2 Sat by Pulse 98 99 Oximetry 06/24/19 06/24/19 06/24/19 02:28 02:33 02:38 Temperature Pulse Rate 62 61 66 Respiratory Rate Blood Pressure Blood Pressure [Left] O2 Sat by Pulse 99 99 99 Oximetry 06/24/19 06/24/19 06/24/19 02:39 02:43 02:48 Temperature Pulse Rate 67 62 77 Respiratory Rate Blood Pressure 90/50 Blood Pressure [Left] O2 Sat by Pulse 98 98 Oximetry 06/24/19 06/24/19 06/24/19 02:53 02:58 03:03 Temperature Pulse Rate 65 66 67 Respiratory Rate Blood Pressure Blood Pressure [Left] O2 Sat by Pulse 98 99 99 Oximetry 06/24/19 06/24/19 06/24/19 03:07 03:08 03:13 Temperature Pulse Rate 61 64 67 Respiratory Rate Blood Pressure 92/45 Blood Pressure [Left] O2 Sat by Pulse 99 99 Oximetry 06/24/19 06/24/19 06/24/19 03:18 03:37 03:42 Temperature Pulse Rate 72 88 77 Respiratory Rate Blood Pressure 104/52 Blood Pressure [Left] O2 Sat by Pulse 99 98 99 Oximetry 06/24/19 06/24/19 06/24/19 03:44 03:47 03:52 Temperature Pulse Rate 71 63 59 L Respiratory Rate Blood Pressure 120/58 Blood Pressure [Left] O2 Sat by Pulse 98 99 Oximetry 06/24/19 06/24/19 06/24/19 03:57 04:02 04:07 Temperature Pulse Rate 65 58 L 60 Respiratory Rate Blood Pressure Blood Pressure [Left] O2 Sat by Pulse 99 98 98 Oximetry 06/24/19 06/24/19 06/24/19 04:08 04:12 04:17 Temperature Pulse Rate 58 L 61 60 Respiratory Rate Blood Pressure 100/55 Blood Pressure [Left] O2 Sat by Pulse 99 97 Oximetry 06/24/19 06/24/19 06/24/19 04:22 04:27 04:32 Temperature Pulse Rate 62 62 62 Respiratory Rate Blood Pressure Blood Pressure [Left] O2 Sat by Pulse 98 98 97 Oximetry 06/24/19 06/24/19 06/24/19 04:37 04:42 04:47 Temperature Pulse Rate 66 62 63 Respiratory Rate Blood Pressure Blood Pressure [Left] O2 Sat by Pulse 98 98 98 Oximetry 06/24/19 06/24/19 06/24/19 04:52 04:57 05:02 Temperature Pulse Rate 65 66 65 Respiratory Rate Blood Pressure Blood Pressure [Left] O2 Sat by Pulse 98 98 98 Oximetry 06/24/19 06/24/19 06/24/19 05:07 05:12 05:17 Temperature Pulse Rate 64 65 64 Respiratory Rate Blood Pressure Blood Pressure [Left] O2 Sat by Pulse 98 98 98 Oximetry 06/24/19 06/24/19 06/24/19 05:22 05:27 05:32 Temperature Pulse Rate 60 62 58 L Respiratory Rate Blood Pressure Blood Pressure [Left] O2 Sat by Pulse 98 99 99 Oximetry 06/24/19 06/24/19 06/24/19 05:37 05:42 05:47 Temperature Pulse Rate 55 L 63 60 Respiratory Rate Blood Pressure Blood Pressure [Left] O2 Sat by Pulse 100 99 99 Oximetry 06/24/19 06/24/19 06/24/19 05:52 05:53 05:54 Temperature 98.9 F Pulse Rate 55 L 62 63 Respiratory 19 Rate Blood Pressure Blood Pressure [Left] O2 Sat by Pulse 99 97 92 Oximetry 06/24/19 06/24/19 06/24/19 05:55 05:57 06:02 Temperature Pulse Rate 61 62 58 L Respiratory Rate Blood Pressure 89/44 Blood Pressure [Left] O2 Sat by Pulse 99 99 Oximetry 06/24/19 06/24/19 06/24/19 06:07 06:12 06:17 Temperature Pulse Rate 55 L 63 58 L Respiratory Rate Blood Pressure Blood Pressure [Left] O2 Sat by Pulse 98 99 99 Oximetry 06/24/19 06/24/19 06/24/19 06:22 06:27 06:32 Temperature Pulse Rate 57 L 66 61 Respiratory Rate Blood Pressure Blood Pressure [Left] O2 Sat by Pulse 99 99 98 Oximetry 06/24/19 06/24/19 06/24/19 06:37 06:42 06:47 Temperature Pulse Rate 60 62 64 Respiratory Rate Blood Pressure Blood Pressure [Left] O2 Sat by Pulse 99 99 99 Oximetry 06/24/19 06/24/19 06/24/19 06:52 06:57 07:02 Temperature Pulse Rate 60 60 65 Respiratory Rate Blood Pressure Blood Pressure [Left] O2 Sat by Pulse 99 99 99 Oximetry 06/24/19 06/24/19 06/24/19 07:07 07:12 07:17 Temperature Pulse Rate 66 75 68 Respiratory Rate Blood Pressure Blood Pressure [Left] O2 Sat by Pulse 99 98 99 Oximetry 06/24/19 06/24/19 06/24/19 07:22 07:27 07:30 Temperature Pulse Rate 64 60 71 Respiratory Rate Blood Pressure 103/56 Blood Pressure [Left] O2 Sat by Pulse 100 99 Oximetry 06/24/19 06/24/19 06/24/19 07:32 07:37 07:42 Temperature Pulse Rate 77 74 73 Respiratory Rate Blood Pressure Blood Pressure [Left] O2 Sat by Pulse 98 100 100 Oximetry 06/24/19 06/24/19 06/24/19 07:45 07:47 07:52 Temperature 99.2 F Pulse Rate 81 75 Respiratory 16 Rate Blood Pressure Blood Pressure [Left] O2 Sat by Pulse 100 100 Oximetry 06/24/19 06/24/19 06/24/19 07:57 08:02 08:07 Temperature Pulse Rate 72 65 70 Respiratory Rate Blood Pressure Blood Pressure [Left] O2 Sat by Pulse 99 98 99 Oximetry 06/24/19 06/24/19 06/24/19 08:12 08:17 08:22 Temperature Pulse Rate 77 83 75 Respiratory Rate Blood Pressure Blood Pressure [Left] O2 Sat by Pulse 100 99 99 Oximetry 06/24/19 08:27 Temperature Pulse Rate 73 Respiratory Rate Blood Pressure Blood Pressure [Left] O2 Sat by Pulse 98 Oximetry - Labs Labs: Abnormal Labs 06/23/19 06/23/19 06/23/19 04:09 04:09 04:30 WBC 11.2 H RDW 12.8 L Lymph % (Auto) 12.9 L Seg Neutrophils % 78.3 H Seg Neutrophils # 8.8 H Sodium 136 L Carbon Dioxide 21 L Creatinine 0.5 L Albumin 3.7 L HCG, Quant 8461 H
[2019-06-24] MEDS: ONDANSETRON 4 MG/2 ML INJ IV PRN (08:48)
[2019-06-24] MEDS ORDERED: OXYTOCIN 20 UNIT/1000ML DRIP 0 MILLIUNITS/0 ML BAG IV ONE (16:33)
[2019-06-25] MEDS ORDERED: AMPICILLIN/NS 2 GM/100 ML 2 GM/100 ML BAG IV ONE ×2 (03:02→07:49)
[2019-06-25] MEDS ORDERED: ACETAMINOPHEN 325 MG TAB PO PRN ×2 (07:40→15:12)
[2019-06-25] MEDS ORDERED: DOCUSATE SODIUM 100 MG CAP PO PRN (07:40)
[2019-06-25] MEDS: AMPICILLIN/NS 2 GM/100 ML 2 GM/100 ML BAG IV SCH ×2 (08:03→14:00)
[2019-06-25] MEDS: LACTATED RINGERS 1,000 ML IV SCH ×3 (08:04→13:06)
[2019-06-25] MEDS ORDERED: TERBUTALINE 1 MG/1 ML INJ SUB-Q PRN (08:23)
[2019-06-25] MEDS ORDERED: TERBUTALINE 1 MG/1 ML INJ IVP PRN (08:23)
[2019-06-25] MEDS ORDERED: fentaNYL 100 MCG/2 ML INJ IV PRN (08:23)
[2019-06-25] MEDS ORDERED: PROMETHAZINE 25 MG TAB PO PRN ×2 (08:23→15:12)
[2019-06-25] MEDS ORDERED: ePHEDrine SULFATE 50 MG/1 ML INJ IV PRN (08:23)
[2019-06-25] MEDS ORDERED: miSOPROStol 200 MCG TAB PR PRN (08:25)
--- NOTE | 2019-06-25 08:29 | Progress Note ---
Assessment and Plan A: 23 yo at 20 weeks EGA PPROM, pre-viability, unspecified duration of LOF Per previous exam, umbilical cord in vagina S/p MFM consult, appreciated VSS P: Administer latency antibiotics Expectant management Subjective - Subjective Date of service: 06/25/19 Principal diagnosis: PPROM Interval history: 23 yo at 20 weeks with PPROM. Pt denies further bleeding. She currently reports an increase of intermittent abdominal cramping. There is still cardiac activity. She is aware of the poor prognosis. Patient reports: loss of fluid, contractions, no vaginal bleeding Objective - Vital Signs Vital Signs: Vital Signs - 12hr 06/25/19 06/25/19 06/25/19 00:34 08:10 08:15 Pulse Rate 55 L 59 L 61 Blood Pressure 103/51 104/54 O2 Sat by Pulse 99 99 Oximetry 06/25/19 08:20 Pulse Rate 58 L Blood Pressure O2 Sat by Pulse 99 Oximetry - Exam Abdomen: Present: soft Uterus: Present: firm Uterine Tone Measurement Phase: Contraction Uterine Contraction Intensity: Mild - Labs Labs: Abnormal Labs 06/23/19 06/23/19 06/23/19 04:09 04:09 04:30 WBC 11.2 H RDW 12.8 L Lymph % (Auto) 12.9 L Seg Neutrophils % 78.3 H Seg Neutrophils # 8.8 H Sodium 136 L Carbon Dioxide 21 L Creatinine 0.5 L Albumin 3.7 L HCG, Quant 8461 H
[2019-06-25] MEDS: ONDANSETRON 4 MG/2 ML INJ IV PRN ×2 (08:49→11:05)
[2019-06-25] MEDS: BUTORPHANOL 2 MG/1 ML INJ IV PRN ×3 (08:52→13:01)
[2019-06-25] MEDS ORDERED: OXYTOCIN 20 UNIT/1000ML DRIP 20 UNITS/1,000 ML BAG IV SCH (09:00)
[2019-06-25] MEDS ORDERED: AZITHROMYCIN 250 MG TAB PO ONE (09:00)
[2019-06-25] MEDS ORDERED: LIDOCAINE (2%) 20 MG/1 ML VIAL 20 ML MDV INFILTRATI ONE (09:00)
[2019-06-25 09:20] LABS: Basophils % (Auto) 0.3 % (0.0-1.8); Eosinophils # (Auto) 0.2 K/mm3 (0.0-0.4); Eosinophils % (Auto) 1.1 % (0.0-4.3); Hematocrit 33.3 % (30.3-42.9); Hemoglobin 11.2 gm/dl (10.1-14.3); Lymphocytes # (Auto) 1.7 K/mm3 (1.2-5.4); Lymphocytes % (Auto) 11.5 % (13.4-35.0); Mean Corpuscular HGB Conc 34 % (30-34); Mean Corpuscular Volume 87 fl (79-97); Monocytes # (Auto) 1.1 K/mm3 (0.0-0.8); Platelet Count 253 K/mm3 (140-440); Red Blood Count 3.84 M/mm3 (3.65-5.03); Red Cell Distribution Width 12.9 % (13.2-15.2)
[2019-06-25] MEDS ORDERED: PRENATAL VIT27-FE FUMARATE-FOLIC ACID VIT TAB PO SCH (10:00)
--- NOTE | 2019-06-25 10:53 | Consultation ---
Consult Note - Parent Education Additional Comment: Consult was requested by OB team regarding pre-viable phillip ry at 21 weeks. Ultrasound on admission shows fetus is about 20 weeks gestation with oligohydramnios. Mom presented with PPROM (unknown duration) and is currently having contractions and umbilical cord is palpated in vagina. The OB team has explained to mother that baby is not viable and will not survive and are requesting a NICU consult to help address mother's concerns since she is hopeful that baby will survive. I met with mother and father of the baby. Father of baby called his sister (baby's aunt) who was on speaker phone during the consult. Mother's nurse was present and we were later joined by the OB provider. Mother wanted to know whether her baby will be admitted to the NICU after delivery and I explained that baby is not viable and will not be offered resuscitation because it will be futile and baby will not survive because of extremely premature lungs. I explained that comfort care is best in this scenario. Parents were very upset and stated that this information was not sha red initially. Primary OB team and Perinatologist have already spoken with mother regarding pre-viable status of fetus and poor prognosis. Family understands that baby will not be rescusitated after delivery or admitted to the NICU since baby is pre-viable and will not survive. Assessment and Plan - Assessment Gestation:: 21 (Non-viable fetus. 20 weeks by Ultrasound) Baby's gender: Male - Plan Plan: Please provide comfort care after delivery NICU will not attend delivery
[2019-06-25] MEDS ORDERED: MORPHINE 4 MG/1 ML INJ IV ONE (13:44)
--- NOTE | 2019-06-25 15:11 | Procedure Note ---
OB Delivery Note - Delivery Date of Delivery: 06/25/19 Surgeon: SURINDER FAJARDO (CN) Estimated blood loss: other (150cc) - Vaginal Delivery presentation: breech (footling) Intrapartum events: labor-<37 weeks, PROM->1hr before delivery Delivery induction: none Delivery monitor: external uterine Route of delivery: Delivery placenta: spontaneous Delivery cord: 3 umbilical vessels Episiotomy: none Anesthesia: intravenous Delivery comments: Pt reports increased rectal pressure and the urge to push. foot noted to be protruding from the vagina. Cervix 6cm dilated. Excellent maternal effort progressed to of non-viable stillborn male fetus at 21.1 weeks EGA, intact, footling breech. Fetus to warmer per pt preference. Placenta followed spontaneously and intact 15 minutes after fetus. EBL 150cc. Cytotec 600mcg administered per rectum. Mother holding fetus and coping well. - A at 1 minute: 0 at 5 minutes: 0 Gender: Male
[2019-06-25] MEDS ORDERED: WITCH HAZEL/ GLYCERIN PAD TP PRN (15:12)
[2019-06-25] MEDS ORDERED: oxyCODONE /ACETAMINOPHEN 5-325MG TAB PO PRN (15:12)
[2019-06-25] MEDS ORDERED: MAGNESIUM HYDROXIDE (MOM) ORAL LIQD UDC PO PRN (15:12)
[2019-06-25] MEDS ORDERED: LANOLIN/ZINC/DIMETHICONE (LANSINOH) 7 GM TP PRN (15:12)
[2019-06-25] MEDS ORDERED: ONDANSETRON 4 MG/2 ML INJ IV PRN (15:12)
[2019-06-25] MEDS ORDERED: PROMETHAZINE 25 MG RECT SUPP PR PRN (15:12)
[2019-06-25] MEDS ORDERED: diphenhydrAMINE 25 MG CAP PO PRN (15:12)
[2019-06-25] MEDS: IBUPROFEN 600 MG TAB PO SCH (18:17)
[2019-06-25] MEDS ORDERED: MINERAL OIL 30 ML ORAL LIQD PO PRN (22:00)
[2019-06-26] MEDS: IBUPROFEN 600 MG TAB PO SCH ×2 (00:24→09:21)
[2019-06-26 05:09] LABS: Hematocrit 31.5 % (30.3-42.9); Hemoglobin 10.4 gm/dl (10.1-14.3)
--- NOTE | 2019-06-26 07:59 | Progress Note ---
Assessment and Plan A: PPD1 s/p of pre-viable fetus s/p latency antibiotics Vital signs stable Mild anemia due to blood loss P: Stable for discharge to home today Subjective - Subjective Date of service: 06/26/19 Principal diagnosis: s/p , IUFD, PPROM Interval history: PPD1 s/p of pre-viable fetus secondary to PPROM and suspected incompetent cervix. Patient reports: appetite normal, voiding normally, pain well controlled, ambulating normally [place]: Objective - Vital Signs Latest vital signs: Vital Signs Temp Pulse Resp BP BP Pulse Ox 06/26/19 04:12 98.2 F 64 16 102/64 99 06/26/19 00:51 97.8 F 64 18 100/73 99 06/25/19 20:36 98.8 F 67 18 124/54 98 06/25/19 17:55 99.2 F 64 129/62 06/25/19 16:26 66 99 06/25/19 16:21 59 L 99 06/25/19 16:16 55 L 98 06/25/19 16:11 56 L 99 06/25/19 16:06 57 L 98 06/25/19 16:01 55 L 99 06/25/19 15:56 57 L 99 06/25/19 15:51 62 98 06/25/19 15:46 66 99 06/25/19 15:41 62 99 06/25/19 15:36 66 98 06/25/19 15:31 82 96 06/25/19 15:27 85 90 06/25/19 15:26 69 98 06/25/19 15:21 60 98 06/25/19 15:18 64 112/56 06/25/19 15:16 65 99 06/25/19 15:11 63 99 06/25/19 15:06 63 98 06/25/19 15:01 63 98 06/25/19 14:56 76 98 06/25/19 14:51 65 99 06/25/19 14:46 69 99 06/25/19 14:41 83 99 06/25/19 14:36 70 99 06/25/19 14:31 75 99 06/25/19 14:26 85 99 06/25/19 14:21 67 99 06/25/19 14:19 61 118/59 06/25/19 14:16 73 98 06/25/19 14:11 67 97 06/25/19 14:06 73 98 06/25/19 14:01 64 98 06/25/19 13:56 59 L 99 06/25/19 13:51 77 97 06/25/19 13:46 63 98 06/25/19 13:41 65 98 06/25/19 13:36 83 98 06/25/19 13:31 65 98 06/25/19 13:26 69 98 06/25/19 13:21 59 L 97 06/25/19 13:16 65 98 06/25/19 13:11 79 99 06/25/19 13:06 72 99 06/25/19 13:01 59 L 100 06/25/19 12:56 64 100 06/25/19 12:51 74 96 06/25/19 12:46 64 99 06/25/19 12:41 59 L 99 06/25/19 12:36 62 99 06/25/19 12:31 61 98 06/25/19 12:26 61 99 06/25/19 12:21 59 L 98 06/25/19 12:16 63 99 06/25/19 12:11 71 97 06/25/19 12:06 71 97 06/25/19 12:01 57 L 98 06/25/19 11:56 57 L 98 06/25/19 11:51 58 L 98 06/25/19 11:46 55 L 98 06/25/19 11:41 56 L 97 06/25/19 11:36 62 98 06/25/19 11:31 57 L 97 06/25/19 11:26 68 98 06/25/19 11:21 65 98 06/25/19 11:16 54 L 98 06/25/19 11:11 58 L 98 06/25/19 11:06 68 98 06/25/19 11:05 16 06/25/19 11:01 69 99 06/25/19 10:56 65 99 06/25/19 10:51 75 98 06/25/19 10:46 61 120/56 99 06/25/19 10:41 62 98 06/25/19 10:36 69 99 06/25/19 10:31 85 98 06/25/19 10:26 81 100 06/25/19 10:21 73 99 06/25/19 10:16 67 99 06/25/19 10:11 65 99 06/25/19 10:06 75 99 06/25/19 10:01 80 98 06/25/19 09:56 58 L 98 06/25/19 09:51 64 99 06/25/19 09:46 71 99 06/25/19 09:30 65 98 06/25/19 09:25 64 97 06/25/19 09:20 62 98 06/25/19 09:15 59 L 98 06/25/19 09:10 69 98 06/25/19 09:05 69 98 06/25/19 09:00 70 98 06/25/19 08:55 62 100 06/25/19 08:50 63 99 06/25/19 08:45 74 99 06/25/19 08:40 70 99 06/25/19 08:35 62 97 06/25/19 08:30 61 99 06/25/19 08:25 65 98 06/25/19 08:20 58 L 99 06/25/19 08:15 61 99 06/25/19 08:10 59 L 104/54 99 Intake and Output 06/25/19 06/25/19 06/26/19 15:59 23:59 07:59 Intake Total 1094.166 240 240 Balance 1094.166 240 240 Intake: IV 1094.166 AMPICILLIN/NS 2 GM/100 ML 100 2 gm In 100 ml @ 100 mls /hr IV Q6H GUILHERME Rx#: [id number] Lactated Ringers 1,000 ml 994.166 @ 125 mls/hr IV DIRECT GUILHERME Rx#:[id number] Intake, Free Water 240 240 Other: # Voids Void 2 2 - Exam Lungs: Present: Normal air movement Abdomen: Present: soft. Absent: distention Uterus: Present: firm, fundal height below umbilicus. Absent: bogginess Extremities: Present: normal - Labs Labs: Abnormal lab results 06/25/19 Range/Units 08:52 WBC 14.4 H (4.5-11.0) K/mm3 RDW 12.9 L (13.2-15.2) % Lymph % (Auto) 11.5 L (13.4-35.0) % [place] % (Auto) 8.0 H (0.0-7.3) % [place] # 1.1 H (0.0-0.8) K/mm3 Seg Neutrophils % 79.1 H (40.0-70.0) % Seg Neutrophils # 11.4 H (1.8-7.7) K/mm3
--- NOTE | 2019-06-26 08:02 | Discharge Summary ---
Providers - Providers Date of Admission: 06/25/19 15:12 Date of discharge: 06/26/19 Attending physician: ELIZABETH SORIANO MD 06/23/19 10:54 Consult to Physician [CONS] Urgent Comment: Consulting Provider: ANGIE DUKE Physician Instructions: CONSULT REQUEST PER DR. ELIZABETH SORIANO MD. Reason For Exam: PPROM, MISCARRIAGE 06/25/19 08:44 Consult to Physician [CONS] Urgent Comment: Consulting Provider: JANIYA BASURTO Physician Instructions: Reason For Exam: PPROM 21.1 wks, pt requests to discuss options Primary care physician: ELIZABETH SORIANO MD Hospitalization Reason for admission: IUP - , rupture of membranes Delivery: Episiotomy: none Laceration: none Other procedures: none complications: none Discharge diagnosis: intrapartum demise (pre-viable fetus in the setting of PPROM) baby: male Hospital course: Pt arrived with PPROM at 20w6d. She received latency antibiotics and progressed to of pre-viable fetus at 21w1d EGA. course uncomplicated. Condition at discharge: Serious Disposition: DC-01 TO HOME OR SELFCARE Plan - Discharge Medications Prescriptions: Ibuprofen [Motrin] 600 mg PO Q6H PRN #60 tablet PRN Reason: Pain - Provider Discharge Summary Activity: routine, no sex for 6 weeks, no heavy lifting 4 weeks, no strenuous exercise Diet: routine Instructions: routine Additional instructions: [] Smoking cessation referral if applicable(refer to patient education folder for contact #) [] Refer to [facility] Booklet Call your doctor immediately for: * Fever > 100.5 * Heavy vaginal bleeding ( >1 pad per hour) * Severe persistent headache * Shortness of breath * Reddened, hot, painful area to leg or breast * Drainage or odor from incision. * Keep incision clean and dry at all times and follow doctor's instructions regarding bathing/showering - Follow up plan Follow up: SURINDER FAJARDO CNM [Advanced Practice Nurse] - 14 Days (Please call office to schedule appointment.)
[2019-06-26 11:52] VITALS: BP 132/78
== END 2019-06-26 11:10 | disposition home or self-care (01) | DRG 775 ==
LOC: ED 03:50 → LD 06:11 → OBSVTOIN 06-25 15:12 → OB 06-25 18:01
PROVIDERS: ADMIT Obstetrics & Gynecology; ATTEND Obstetrics & Gynecology
PROC: 10E0XZZ Delivery of Products of Conception, External Approach (ICD-10-PCS; principal; 2019-06-25)
DX: O42.012 Preterm premature rupture of membranes, onset of labor within 24 hours of rupture, second trimester (principal); D62 Acute posthemorrhagic anemia; O34.32 Maternal care for cervical incompetence, second trimester; O60.12X0 Preterm labor second trimester with preterm delivery second trimester, not applicable or unspecified; Z37.1 Single stillbirth; O99.02 Anemia complicating childbirth; Z3A.21 21 weeks gestation of pregnancy; O99.334 Smoking (tobacco) complicating childbirth; F17.200 Nicotine dependence, unspecified, uncomplicated; O69.0XX0 Labor and delivery complicated by prolapse of cord, not applicable or unspecified; O32.8XX0 Maternal care for other malpresentation of fetus, not applicable or unspecified
CPT/HCPCS: 36415; 76805; 76815; 80053; 82550; 83735; 84702; 85014; 85018; 85025; 86850; 86900; 86901; 88305; G0378; J0290; J0595; J2405; J2590; J3490; J7120